=== PATIENT | female | born 1955 | race Caucasian/White ===

== ENCOUNTER 2018-06-12 11:01 | Inpatient (IN) | payer BC, SELFPAY ==
[2018-06-12] MEDS ORDERED: PROMETHAZINE 25 MG/ML VIAL IV PRN (11:39)
[2018-06-12 12:00] VITALS: BMI 30.2
--- OUTSIDE RECORDS SUMMARY | 2018-06-12 12:23 | XMS REPORT | Clinical Summary ---
:1955 Author Organization [facility] Address [address] [place] [id number] Care Team Providers Name Role Phone John Alcala MD Primary Care Provider Allergies No Known Allergies Medications Medication Sig Dispensed Refills Start Date End Date Status BOOSTRIX TDAP 2.5-8-5 0 10/27/2015 Active Lf-mcg-Lf/0.5mL vaccine valsartan-hydrochloroth 1 tablet daily. 5 01/19/2016 Active iazide (DIOVAN-HCT) 320-12.5 mg per tablet ANUCORT-HC 25 mg 25 mg as needed. 0 12/08/2015 Active suppository fenofibrate (TRICOR) 145 mg daily. 9 01/27/2016 Active 145 MG tablet rosuvastatin (CRESTOR) 5 mg nightly. 11 12/23/2016 Active 5 MG tablet MULTIVITAMIN ORAL Take 1 tablet by 0 Active mouth daily. Active Problems Problem Noted Date Essential hypertension 01/27/2016 PFO (patent foramen ovale) 01/27/2016 Family History Medical History Relation Name Comments Cancer Mother Relation Name Status Comments Mother Social History Tobacco Use Types Packs/Day Years Used Date Never Smoker Smokeless Tobacco: Never Used Alcohol Use Drinks/Week oz/Week Comments Yes Sex Assigned at Date Recorded Not on file Job Start Date Occupation Industry Not on file Not on file Not on file Travel History Travel Start Travel End No recent travel history available. Last Filed Vital Signs Not on file Plan of Treatment Health Maintenance Due Date Last Done Comments CERVICAL CANCER SCREENING 01/20/1977 BREAST CANCER SCREENING 01/20/2006 COLON CANCER SCREENING 01/20/2006 SHINGLES VACCINES (#1) 01/20/2006 INFLUENZA VACCINE 09/18/2018 Results Not on fileafter 06/11/2017 Insurance Payer Benefit Plan / Group Subscriber ID Type Phone Address BCBS BCBS CHOICE PPO/FEDERAL EMPL PPO xxxxxxxxxxxx PPO Advance Directives Patient has advance care planning documents on file. For more information, please contact:Jason Rodriges[address] [place] [address]
--- OUTSIDE RECORDS SUMMARY | 2018-06-12 12:23 | XMS REPORT ---
:1955 [facility] Address [address] [place] [address] [address] Care Team Providers Name Role Phone Kip Crocker Unavailable Unavailable Payers Payer Name Policy Type Policy Number Effective Date Expiration Date Problems This patient has no known problems. Allergies, Adverse Reactions, Alerts This patient has no known allergies or adverse reactions. Medications This patient has no known medications. Encounters Start End Encounter Admission Attending Care Care Encounter Date/Time Date/Time Type Type Clinicians Facility Department ID 2016-08-03 2016-08-03 Outpatient AUDRA Crocker [id number] 10:57:00 10:57:00 Kip
[2018-06-12] MEDS: CEFTRIAXONE/SWI 1gm 1 GM/10 ML SYR IV SCH ×2 (12:30→20:49)
[2018-06-12 12:35] LABS: Urine Appearance CLEAR; Urine Bilirubin NEGATIVE (NEG); Urine Blood 2+ (NEG); Urine Color YELLOW; Urine Glucose NEGATIVE (NEG); Urine Protein 1+ (NEG); Urine Urobilinogen 0.2 mg/dL (0.2-1.0)
[2018-06-12 12:35] LABS: Absolute Lymphocytes (CBC) 2.7 K/uL (0.7-4.9); Absolute Neutrophil 8.5 K/uL (1.8-8.0); Basophils % 0.4 % (0-1.3); Eosinophils % 1.5 % (0-4.4); Hematocrit 42.8 % (36.0-45.0); Lymphocytes % 21.6 % (15.3-44.8); MPV 8.8 fL (7.6-11.3); Monocytes % 8.3 % (3.3-12.3); RBC Red Blood Cell Count 5.02 M/uL (3.86-4.86)
[2018-06-12 12:40] LABS: Albumin 4.4 g/dL (3.4-5.0); Bilirubin Total 0.8 mg/dL (0.2-1.0); Potassium 3.9 mmol/L (3.5-5.1); Protein, Total 8.5 g/dL (6.4-8.2); Protime INR 1.01
[2018-06-12 12:55] LABS: Urine Bacteria 20-50 /HPF (<20); Urine Culture Reflex Order NOT NEEDED; Urine RBC 20-50 /HPF (NONE SEEN)
[2018-06-12] MEDS ORDERED: CEFTRIAXONE 1 GM/NS 50 ML 1 GM/50 ML BAG IV SCH (13:00)
--- NOTE | 2018-06-12 13:23 | RAD REPORT ---
EXAM DESCRIPTION: RAD - Chest Pa And Lat (2 Views) - 06/12/2018 1:11 pm CLINICAL HISTORY: HTN, preop Chest pain. COMPARISON: Chest Pa And Lat (2 Views) dated 09/11/2016; CHEST SINGLE VIEW dated 07/08/2014; CHEST PA AND LAT 2 VIEW dated 04/08/2012 FINDINGS: The lungs are clear. The heart is mildly enlarged in size. No displaced fractures.
[2018-06-12] MEDS: NA CHLORIDE 0.9% 1,000 ML IV SCH ×2 (13:24→23:38)
[2018-06-12] MEDS: MORPHINE 2 MG/ML SYR IV PRN ×2 (13:40→20:48)
--- NOTE | 2018-06-12 13:45 | RAD REPORT ---
EXAM DESCRIPTION: CT - Abdomen Pelvis Wo Contrast - 06/12/2018 12:44 pm CLINICAL HISTORY: Abdominal pain right flank pain COMPARISON: None TECHNIQUE: Computed axial tomography of the abdomen and pelvis was obtained. IV and oral contrast we re not requested. All CT scans are performed using dose optimization technique as appropriate and may include automated exposure control or mA/KV adjustment according to patient size. FINDINGS: The evaluation of solid organs, vessels and bowel is limited secondary to the lack of con trast administration. A renal calculus is not seen. Mild right periureteral stranding is seen. A ureteral calculus is not v isualized The liver, spleen, pancreas, and adrenals appear grossly normal. There is no evidence of diverticulitis. Duodenal diverticulum IMPRESSION: Right periureteral stranding likely indicates a genitourinary infection. .
[2018-06-12] MEDS ORDERED: KCL 20 MEQ/100 mL IVPB 20 MEQ/100 ML BAG IV SCH (17:00)
[2018-06-13 06:23] LABS: Absolute Lymphocytes (CBC) 2.7 K/uL (0.7-4.9); Absolute Monocytes 0.9 K/uL (0.1-1.3); Absolute Neutrophil 3.8 K/uL (1.8-8.0); Basophils % 0.6 % (0-1.3); Eosinophils % 3.3 % (0-4.4); Hematocrit 37.9 % (36.0-45.0); Lymphocytes % 35.4 % (15.3-44.8); MPV 9.5 fL (7.6-11.3); Monocytes % 11.7 % (3.3-12.3); RBC Red Blood Cell Count 4.39 M/uL (3.86-4.86)
[2018-06-13 06:37] LABS: Potassium 4.3 mmol/L (3.5-5.1)
--- NOTE | 2018-06-13 06:44 | EKG ---
Test Date: 2018-06-12 Test Time: 13:08:32 Probation Supervisor: HUSEYIN MEASUREMENT RESULTS: Intervals: Rate: 75 NE: 178 QRSD: 96 QT: 354 QTc: 395 [place]lock: P: 56 NE: 178 QRS: -23 T: 52 INTERPRETIVE STATEMENTS: Normal sinus rhythm Anterior infarct, age undetermined Abnormal ECG Compared to ECG 07/09/2014 05:22:32 Sinus bradycardia no longer present Incomplete right bundle-branch block no longer present Myocardial infarct finding still present Electronically Signed On 06-13-18 06:42:30 CDT by Rashard Mcnair
[2018-06-13] MEDS: NA CHLORIDE 0.9% 1,000 ML IV SCH ×2 (08:00→09:03)
[2018-06-13] MEDS: CEFTRIAXONE/SWI 1gm 1 GM/10 ML SYR IV SCH ×2 (09:02→20:04)
[2018-06-13] MEDS: ACETAMINOPHEN 500 MG TAB PO PRN ×2 (09:02→20:04)
[2018-06-13] MEDS: ENOXAPARIN 40 MG/0.4 ML SQ SCH (09:03)
--- NOTE | 2018-06-13 09:25 | HP ---
Date of Admission: 06/12/2018 Chief Complaint: Abdominal pain. History Of Present Illness: This is a 63-year-old pleasant female patient who was doing fine in her normal usual state of health until around 4 o'clock this morning, she woke up with complaints of righ t-sided abdominal pain in the anterior and posterior flank region. She also has frequent urination a nd some burning sensation on urination. Has some low-grade fever with this. Pain is continuous. No aggravating or relieving factor. No radiation of pain. No other associated symptoms. No nausea, v omiting. After she was evaluated at our office, a decision was made to admit her to hospital for fur ther evaluation and management of this problem as I was concerned about possibility of pyelonephritis and/or kidney stone. Allergies: NO KNOWN ALLERGIES. Medications: List reviewed. Review of Systems: Genitourinary: As mentioned above. GI: As mentioned above. Constitutional: As mentioned above. All other systems reviewed and negative. Social History: Negative for smoking and alcohol use. Family History: Significant for hypertension, breast cancer, cirrhosis of liver. Past Medical History: Significant for hypertension, mixed hyperlipidemia, diverticulosis. Past Surgical History: Significant for knee replacement, hysterectomy, bilateral salpingo-oophorecto my, appendectomy, arthroscopic knee surgery, cholecystectomy. Physical Examination: General: When she came into our office today, she appeared acutely ill. Awake, alert, oriented, not in distress. Vital Signs: Shows height 67.5 inches, weight 192 pounds, blood pressure 134/84, pulse 78, respirato ry rate 15, temperature 99.5. HEENT: Head atraumatic, normocephalic. Conjunctivae nonerythematous. Sclerae white. Mouth, no thr ush or edema noted. Ears/Nose, no mass, lesion, discharge noted. Neck: Supple. No JVD, lymph nodes, bruit, thyromegaly noted. Lungs: Bilateral good equal air entry. Clear to auscultation. No rhonchi. No rales. Heart: Normal heart sounds, no murmur or gallop. Abdomen: The patient has significant tenderness of right anterior and posterior flank region. No re bound tenderness. Bowel sounds normoactive. No guarding, rigidity. No hepatosplenomegaly. No brui t. Extremities: No leg edema. No calf tenderness. Skin: No rash, ulcer, cellulitis. Lymphatics: No lymph node enlargement in neck, supraclavicular, infraclavicular region. Neuro: No focal neurological deficit. Chest: Unremarkable. External Genitalia: Deferred. Rectal: Deferred. Laboratory Data: After she was admitted to the hospital, CAT scan of the abdomen per kidney stone pr otocol shows evidence of inflammatory changes around right proximal ureter. No evidence of any kidne y stone or hydronephrosis. Chest x-ray, no acute cardiopulmonary changes. White count 12.5, hemoglo bin 14.5, platelets 257. PT, PTT normal. Sodium 138, potassium 3.9, chloride 102, bicarb 29, BUN 14 , creatinine 0.82, glucose 96. Liver function tests unremarkable. Lactic acid 1.6. Procalcitonin l ess than 0.05. Urinalysis; 2+ esterase, rbc 20 to 50, wbc 20 to 50, bacteria 20 to 50, 2+ blood. Impression: 1.Acute pyelonephritis. 2.Hypertension. 3.Mixed hyperlipidemia. 4.Diverticulosis. Plan: Admit the patient to hospital for further evaluation and management of this problem. The miriam ent is appropriate for inpatient and is expected to spend 2 midnights in the hospital. We will go ah ead and continue home medications per order, probably starting tomorrow. IV fluid will be given. IV antibiotics will be given per order. We will follow up on urine culture, blood culture. DVT prophy laxis will be given using Lovenox per order. Plan of treatment discussed with the patient. I will s ee her tomorrow morning for followup. MUSTAPHA/MODL Voice ID: [id number]
[2018-06-13 11:47] VITALS: O2SAT 97
--- NOTE | 2018-06-14 00:01 | PN ---
Date of Progress Note: 06/13/2018 Subjective: The patient was seen this morning for followup. No new complaints, problems reported by the patient lying in bed, not in distress. Objective: Vital Signs: Reviewed. HEENT: Unremarkable. Lungs: Clear to auscultation. Heart: Sounds normal. Abdomen: Soft. Bowel sounds normoactive. No guarding, rigidity, distention. The patient does have some tenderness in right anterior and posterior flank, but overall it is better today than yesterday . No rebound tenderness. Extremities: No leg edema. Laboratory Data: White count 7.7, hemoglobin 12.7, platelets 235. Sodium 142, potassium 4.3, chlori de 109, bicarb 27, BUN 13, creatinine 0.77, glucose 91. Impression: 1.Acute pyelonephritis. 2.Hypertension. 3.Mixed hyperlipidemia. Plan: We will go ahead and continue IV fluid, but reduce rate to 50 cc/hour. Continue current empir ic antibiotic, ceftriaxone. Urine culture is growing gram-negative rods; definite identification and sensitivity result pending. Blood culture is negative so far. Ambulation was encouraged. Continue DVT prophylaxis with Lovenox. I will see her tomorrow for followup. MUSTAPHA/MODL Voice ID: [id number] Report ID: [id number]
[2018-06-14] MEDS: NA CHLORIDE 0.9% 1,000 ML IV SCH (04:11)
[2018-06-14] MEDS: CEFTRIAXONE/SWI 1gm 1 GM/10 ML SYR IV SCH (09:48)
[2018-06-14] MEDS: ENOXAPARIN 40 MG/0.4 ML SQ SCH (09:48)
[2018-06-14] MEDS: ACETAMINOPHEN 500 MG TAB PO PRN (09:54)
[2018-06-14 11:49] VITALS: BP 150/87; TEMP 97.9
--- NOTE | 2018-06-14 17:23 | DS ---
Date of Discharge: 06/14/2018 Disposition: Discharged to go home. Physical Examination: HEENT: Unremarkable. Lungs: Clear to auscultation. Heart: Sounds normal. Abdomen: Soft. Bowel sounds normal. No guarding, rigidity, tenderness, or distention. Extremities: No leg edema. Laboratory Data: Upon admission, white count 12.5, hemoglobin 14.5, platelets 257. Yesterday, white count 7.7, hemoglobin 12.7, platelets 235. Initial sodium 138, potassium 3.9, chloride 102, bicarb 29, BUN 14, creatinine 0.82, glucose 96. Urine culture growing E. coli. Blood culture remained nega tive. Procalcitonin less than 0.05. Lactic acid 1.6. Hospital Course: A 63-year-old pleasant female patient, came into office with abdominal pain, fever, and some urinary complaints. Please see dictated H and P for more information. After patient was e valuated at the office, decision was made to admit her to the hospital as I was concerned about acute pyelonephritis and kidney stone and also wanted to make sure that she did not have any sepsis proble m with this infection. The patient had significant right flank tenderness in anterior and posterior region. After admission, routine blood work was done. CAT scan of the abdomen and pelvis done with kidney stone protocol, and it did reveal presence of changes of pyelonephritis, but there was no evid ence of any kidney stone or obstruction. IV fluid was given, IV antibiotic ceftriaxone was started. The patient's right flank tenderness got better yesterday, and today when I examined her, she had no complaints of abdominal pain and had no tenderness in the anterior or posterior flank. She is doing much better, feels much better, and she was discharged to go home in stable condition with Augmentin 875 mg twice a day with food to be taken for 2 weeks, and I have advised her to [facility] evaluation and management of this urinary tract infection problem in about 3 weeks, and she will schedule her appointment for that. The patient will keep appointment to see me as per h er schedule appointment, and she should call office earlier if she needs any or earlier appointment. Final Diagnoses: 1.Acute pyelonephritis. 2.Hypertension. 3.Mixed hyperlipidemia. 4.Diverticulosis. MUSTAPHA/MODL Voice ID: [id number] Report ID: [id number]
== END 2018-06-14 13:21 | disposition home or self-care (01) | DRG 690 ==
LOC: 4TH 11:16
PROVIDERS: ADMIT Internal Medicine; ATTEND Internal Medicine
DX: N10 Acute pyelonephritis (principal); I10 Essential (primary) hypertension; E78.2 Mixed hyperlipidemia; K57.90 Diverticulosis of intestine, part unspecified, without perforation or abscess without bleeding
CPT/HCPCS: 36415; 71046; 74176; 80048; 80053; 81001; 83605; 83735; 84145; 85025; 85610; 85730; 87040; 87077; 87086; 87088; 87186; 93005; J0696; J1650; J2270; J7030

== ENCOUNTER 2018-09-20 13:01 | Emergency (ER) | payer BC ==
--- OUTSIDE RECORDS SUMMARY | 2018-09-20 13:03 | XMS REPORT | Clinical Summary ---
:1955 Author Organization [facility] Address [address] [place] [id number] Care Team Providers Name Role Phone John [...] Health Maintenance Due Date Last Done Comments BREAST CANCER SCREENING 01/20/2006 COLONOSCOPY SCREENING 01/20/2006 SHINGLES VACCINES (#1) 01/20/2006 INFLUENZA VACCINE 09/18/2018 Results Not on fileafter 09/19/2017 Advance Directives Patient has advance care planning documents on file. For more information, please contact:Jason Rodriges[address] [place] [address]
--- OUTSIDE RECORDS SUMMARY | 2018-09-20 13:03 | XMS REPORT ---
:1955 [facility] Address [address] [place] [address] [address] Care Team Providers Name Role Phone Kip [...] Date/Time Type Type Clinicians Facility Department ID 2018-08-01 2018-08-01 Outpatient AUDRA Crocker [id number] 10:03:00 10:03:00 Kip 2016-08-03 2016-08-03 Outpatient AUDRA Crocker [id number] 10:57:00 10:57:00 Kip
[2018-09-20] MEDS ORDERED: NA CHLORIDE 0.9% 500 ML ONE (14:17)
[2018-09-20 14:36] LABS: Absolute Lymphocytes (CBC) 2.2 K/uL (0.7-4.9); Basophils % 0.8 % (0-1.3); Hematocrit 43.5 % (36.0-45.0); Lymphocytes % 33.5 % (15.3-44.8); MPV 8.6 fL (7.6-11.3); RBC Red Blood Cell Count 5.06 M/uL (3.86-4.86)
[2018-09-20 14:39] LABS: Urine Blood NEGATIVE (NEG); Urine Glucose NEGATIVE (NEG); Urine Protein NEGATIVE (NEG); Urine Specific Gravity 1.015 (1.005-1.030)
[2018-09-20 15:20] LABS: Albumin 4.2 g/dL (3.4-5.0); Bilirubin Direct 0.2 mg/dL (0-0.2); Bilirubin Total 0.7 mg/dL (0.2-1.0); Magnesium 1.9 mg/dL (1.8-2.4); Potassium 3.7 mmol/L (3.5-5.1); Protein, Total 8.1 g/dL (6.4-8.2)
--- NOTE | 2018-09-20 15:58 | RAD REPORT ---
EXAM DESCRIPTION: CT - Abdomen Pelvis W Contrast - 09/20/2018 3:40 pm CLINICAL HISTORY: Abdominal pain with diarrhea COMPARISON: May 2018. TECHNIQUE: Computed axial tomography of the abdomen pelvis was obtained. 100 cc Isovue-300 was admin istered intravenously. Oral contrast was not requested which limits evaluation of bowel. All CT scans are performed using dose optimization technique as appropriate and may include automated exposure control or mA/KV adjustment according to patient size. FINDINGS: Fatty liver. Liver appears borderline enlarged. Spleen, pancreas, adrenal and kidneys appear unremarkable. There is no evidence of diverticulitis. Tiny umbilical hernia Fluid is present within nondilated bowel. Small duodenal diverticulum IMPRESSION: Fluid in nondilated bowel may indicate an enteritis
--- NOTE | 2018-09-20 16:36 | EDPHYS ---
Physician Documentation [facility] Name: Isi Castillo Age: 63 yrs Sex: Female : 1955 Arrival Date: 09/20/2018 Time: 13:03 Bed 24 Private MD: Libia Alcala C ED Physician Angel Hawk HPI: 09/20 13:25 This 63 yrs old Female presents to ER via Ambulatory with complaints of cp Diarrhea. 13:25 The patient presents to the emergency department with diarrhea, that is continuous. cp Onset: The symptoms/episode began/occurred 2 day(s) ago. Possible causes: unknown. Associated signs and symptoms: Pertinent negatives: abdominal pain, constipation, dysuria, fever, GI bleeding, vomiting. Severity of symptoms: in the emergency department the symptoms are unchanged despite home interventions. Patient denies recent travel out of country or recent use of antibiotics. Historical: - Allergies: 13:08 No Known Allergies; hj - PMHx: 13:08 Hypertension; Hyperlipidemia; hj - PSHx: 13:08 Cholecystectomy; Hysterectomy; Knee surgery; hj - Immunization history:: Adult Immunizations up to date. - Social history:: Smoking status: Patient/guardian denies using tobacco. - Ebola Screening: : Patient negative for fever greater than or equal to 101.5 degrees Fahrenheit, and additional compatible Ebola Virus Disease symptoms Patient denies exposure to infectious person Patient denies travel to an Ebola-affected area in the 21 days before illness onset No symptoms or risks identified at this time. ROS: 13:30 Constitutional: Negative for body aches, chills, fever, poor PO intake. cp 13:30 Eyes: Negative for injury, pain, redness, and discharge. cp 13:30 ENT: Negative for ear pain, sore throat, difficulty swallowing, difficulty handling secretions. 13:30 Cardiovascular: Negative for chest pain, palpitations. 13:30 Respiratory: Negative for cough, shortness of breath, wheezing. 13:30 Abdomen/GI: Positive for diarrhea, Negative for abdominal pain, vomiting, constipation, black/tarry stool, rectal bleeding. 13:30 Back: Negative for radiated pain. 13:30 : Negative for urinary symptoms. 13:30 Skin: Negative for cellulitis, rash. 13:30 Neuro: Negative for altered mental status, headache, syncope, weakness. 13:30 All other systems are negative. Exam: 13:40 Constitutional: The patient appears in no acute distress, alert, awake, non-toxic, well cp developed, well nourished. 13:40 Head/Face: Normocephalic, atraumatic. cp 13:40 Eyes: Periorbital structures: appear normal, Conjunctiva: normal, no exudate, no injection, Sclera: no appreciated abnormality, Lids and lashes: appear normal, bilaterally. 13:40 ENT: External ear(s): are unremarkable, Nose: is normal, Mouth: Lips: moist, Oral mucosa: pink and intact, moist, Posterior pharynx: is normal, airway is patent, no erythema, no exudate. 13:40 Neck: ROM/movement: is normal, is supple, without pain, no meningismus, no nuchal rigidity. 13:40 Chest/axilla: Inspection: normal, Palpation: is normal, no crepitus, no tenderness. 13:40 Cardiovascular: Rate: normal, Rhythm: regular, Edema: is not appreciated, JVD: is not appreciated. 13:40 Respiratory: the patient does not display signs of respiratory distress, Respirations: labored breathing, is not present, accessory muscle usage, is absent, intercostal retractions, are absent, splinting, is not noted, tachypnea, is not appreciated, Breath sounds: are clear throughout, no decreased breath sounds, no stridor, no wheezing. 13:40 Abdomen/GI: Inspection: abdomen appears normal, Bowel sounds: active, all quadrants, Palpation: abdomen is soft and non-tender, in all quadrants. 13:40 Back: pain, is absent. 13:40 Skin: no rash present. Vital Signs: 13:08 BP 132 / 79; Pulse 73; Resp 16; Temp 98.4(O); Pulse Ox 98.4% on R/A; Weight 86.18 kg; hj Height 5 ft. 7 in. (170.18 cm); Pain 0/10; 13:27 BP 129 / 79 Supine; Pulse 66; Resp 16 S; Pulse Ox 100% on R/A; ca1 13:29 BP 130 / 88 Sitting; Pulse 78; Resp 16 S; Pulse Ox 100% on R/A; ca1 13:29 BP 122 / 84 Standing; Pulse 86; Resp 17 S; Pulse Ox 100% on R/A; ca1 14:31 BP 116 / 79; Pulse 76; Resp 16 S; Pulse Ox 100% on R/A; ca1 15:30 BP 125 / 64; Pulse 69; Resp 17 S; Pulse Ox 100% on R/A; ca1 16:34 BP 122 / 74; Pulse 72; Resp 17 S; Temp 98(O); Pulse Ox 100% on R/A; ca1 13:08 Body Mass Index 29.76 (86.18 kg, 170.18 cm) hj MDM: 13:17 Patient medically screened. cp 14:45 Differential diagnosis: gastritis, pancreatitis, appendicitis, viral gastroenteritis, cp gastroenteritis. 16:35 Data reviewed: vital signs, nurses notes, lab test result(s), radiologic studies, CT cp scan. 16:35 Counseling: I had a detailed discussion with the patient and/or guardian regarding: the cp historical points, exam findings, and any diagnostic results supporting the discharge/admit diagnosis, lab results, radiology results, to return to the emergency department if symptoms worsen or persist or if there are any questions or concerns that arise at home. 16:35 Response to treatment: the patient's symptoms have mildly improved after treatment, and cp as a result, I will discharge patient. 09/20 14:13 Order name: Basic Metabolic Panel; Complete Time: 16:00 cp 09/20 16:01 Interpretation: Normal except: GFR 78. cp 09/20 14:13 Order name: CBC with Diff; Complete Time: 16:00 cp 09/20 16:01 Interpretation: Normal except: RBC 5.06. cp 09/20 14:13 Order name: Creatinine for Radiology; Complete Time: 16:00 cp 09/20 14:13 Order name: Hepatic Function; Complete Time: 16:00 cp 09/20 16:01 Interpretation: Normal except: AST 70; ALT 81; GLOB 3.9. cp 09/20 14:13 Order name: Lipase; Complete Time: 16:00 cp 09/20 14:13 Order name: Magnesium; Complete Time: 16:00 cp 09/20 13:17 Order name: Orthostatics; Complete Time: 13:35 cp 09/20 14:13 Order name: IV Saline Lock; Complete Time: 14:30 cp 09/20 14:13 Order name: Labs collected and sent; Complete Time: 14:30 cp 09/20 14:13 Order name: Urine Dipstick-Ancillary (obtain specimen); Complete Time: 14:30 cp 09/20 14:13 Order name: CT Abd/Pelvis - IV Contrast Only; Complete Time: 16:00 cp 09/20 14:38 Order name: Urine Dipstick--Ancillary (enter results); Complete Time: 16:00 eb 09/20 16:02 Order name: PO challenge; Complete Time: 16:17 cp Administered Medications: 14:28 Drug: NS 0.9% 500 ml Route: IV; Rate: bolus; Site: right antecubital; ca1 15:00 Follow up: Response: No adverse reaction; IV Status: Completed infusion ca1 16:36 Drug: LoMOTIL 1 tabs Route: PO; hj 16:51 Follow up: Response: No adverse reaction hj 17:01 Follow up: Response: No adverse reaction ca1 Disposition: 09/20/18 16:35 Discharged to Home. Impression: Diarrhea, unspecified. - Condition is Stable. - Discharge Instructions: Food Choices to Help Relieve Diarrhea, Adult, Diarrhea, Adult. - Prescriptions for Zofran 4 mg Oral Tablet - take 1 tablet by ORAL route every 12 hours As needed; 20 tablet. Lomotil 2.5- 0.025 mg Oral Tablet - take 1 tablet by ORAL route every 6 hours As needed; 20 tablet. - Medication Reconciliation Form, Thank You Letter, Antibiotic Education, Prescription Opioid Use form. - Follow up: Libia Alcala MD; When: 2 - 3 days; Reason: diarrhea continues. - Problem is new. - Symptoms have improved. Addendum: 09/21/2018 17:10 Co-signature as Attending Physician, Angel Hawk MD. r n Signatures: Dispatcher [employer] EDAngel Lloyd MD MD rn Joaquin, Henry, RN RN hj Page, Corey, PA PA cp Acob, Cheryl RN RN ca1 Corrections: (The following items were deleted from the chart) 09/20 17:04 16:35 09/20/2018 16:35 Discharged to Home. Impression: Diarrhea, unspecified. Condition ca1 is Stable. Forms are Medication Reconciliation Form, Thank You Letter, Antibiotic Education, Prescription Opioid Use. Follow up: Libia Alcala; When: 2 - 3 days; Reason: diarrhea continues. Problem is new. Symptoms have improved. cp
--- NOTE | 2018-09-20 16:36 | ER ---
Nurse's Notes [facility] Name: Isi Castillo Age: 63 yrs Sex: Female : 1955 Arrival Date: 09/20/2018 Time: 13:03 Bed 24 Private MD: Libia Alcala C Diagnosis: Diarrhea, unspecified Presentation: 09/20 13:06 Presenting complaint: Patient states: i have diarrhea since noon and it seemed hj to subside but its still there, denies abd pain; denies N/V; denies fever and chills;. Transition of care: patient was not received from another setting of care. Onset of symptoms was September 20, 2018. Risk Assessment: Do you want to hurt yourself or someone else? Patient reports no desire to harm self or others. Initial Sepsis Screen: Does the patient meet any 2 criteria? No. Patient's initial sepsis screen is negative. Does the patient have a suspected source of infection? No. Patient's initial sepsis screen is negative. Care prior to arrival: None. 13:06 Method Of Arrival: Ambulatory 13:06 Acuity: REMY 3 hj Historical: - Allergies: 13:08 No Known Allergies; hj - PMHx: 13:08 Hypertension; Hyperlipidemia; hj - PSHx: 13:08 Cholecystectomy; Hysterectomy; Knee surgery; hj - Immunization history:: Adult Immunizations up to date. - Social history:: Smoking status: Patient/guardian denies using tobacco. - Ebola Screening: : Patient negative for fever greater than or equal to 101.5 degrees Fahrenheit, and additional compatible Ebola Virus Disease symptoms Patient denies exposure to infectious person Patient denies travel to an Ebola-affected area in the 21 days before illness onset No symptoms or risks identified at this time. Screenin:22 Abuse screen: Denies threats or abuse. Denies injuries from another. Nutritional ca1 screening: No deficits noted. Tuberculosis screening: No symptoms or risk factors identified. Fall Risk None identified. Assessment: 13:22 General: Appears in no apparent distress. comfortable, Behavior is calm, cooperative, ca1 appropriate for age. Pain: Denies pain. Neuro: Level of Consciousness is awake, alert, obeys commands, Oriented to person, place, time, situation. Cardiovascular: Heart tones S1 S2 present Capillary refill < 3 seconds Patient's skin is warm and dry. Respiratory: Airway is patent Respiratory effort is even, unlabored, Respiratory pattern is regular, symmetrical, Breath sounds are clear bilaterally. GI: Abdomen is round non-distended, Bowel sounds present X 4 quads. Abd is soft and non tender X 4 quads. Reports diarrhea, since 4 days ago Patient currently denies nausea, vomiting. : No deficits noted. No signs and/or symptoms were reported regarding the genitourinary system. EENT: No deficits noted. No signs and/or symptoms were reported regarding the EENT system. Derm: Skin is intact, is healthy with good turgor, Skin is pink, warm \T\ dry. Musculoskeletal: Circulation, motion, and sensation intact. Capillary refill < 3 seconds, Range of motion: intact in all extremities. 13:32 Reassessment: Orthostatics done. Negative. No reports of dizziness, N/V. Notified ca1 provider. 14:31 Reassessment: Patient appears in no apparent distress at this time. Patient and/or ca1 family updated on plan of care and expected duration. Pain level reassessed. Patient is alert, oriented x 3, equal unlabored respirations, skin warm/dry/pink. 15:30 Reassessment: Patient appears in no apparent distress at this time. Patient and/or ca1 family updated on plan of care and expected duration. Pain level reassessed. Patient is alert, oriented x 3, equal unlabored respirations, skin warm/dry/pink. 16:30 Reassessment: Patient appears in no apparent distress at this time. Patient and/or ca1 family updated on plan of care and expected duration. Pain level reassessed. Patient is alert, oriented x 3, equal unlabored respirations, skin warm/dry/pink. Vital Signs: 13:08 BP 132 / 79; Pulse 73; Resp 16; Temp 98.4(O); Pulse Ox 98.4% on R/A; Weight 86.18 kg; hj Height 5 ft. 7 in. (170.18 cm); Pain 0/10; 13:27 BP 129 / 79 Supine; Pulse 66; Resp 16 S; Pulse Ox 100% on R/A; ca1 13:29 BP 130 / 88 Sitting; Pulse 78; Resp 16 S; Pulse Ox 100% on R/A; ca1 13:29 BP 122 / 84 Standing; Pulse 86; Resp 17 S; Pulse Ox 100% on R/A; ca1 14:31 BP 116 / 79; Pulse 76; Resp 16 S; Pulse Ox 100% on R/A; ca1 15:30 BP 125 / 64; Pulse 69; Resp 17 S; Pulse Ox 100% on R/A; ca1 16:34 BP 122 / 74; Pulse 72; Resp 17 S; Temp 98(O); Pulse Ox 100% on R/A; ca1 13:08 Body Mass Index 29.76 (86.18 kg, 170.18 cm) ED Course: 13:03 Patient arrived in ED. as 13:04 Libia Alcala MD is Private Physician. as 13:07 Triage completed. hj 13:08 Arm band placed on left wrist. hj 13:12 Erika Schumacher, HELGA is Primary Nurse. ca1 13:12 Chadwick Lomeli PA is PHCP. cp 13:12 Angel Hawk MD is Attending Physician. cp 13:22 Patient has correct armband on for positive identification. Bed in low position. Call ca1 light in reach. Side rails up X 1. Pulse ox on. NIBP on. Warm blanket given. 14:21 Radiology exam delayed due to lab results not completed at this time. (BUN/Creatinine). bq 14:25 Inserted saline lock: 20 gauge in right antecubital area, using aseptic technique. ca1 Blood collected. 15:40 CT completed. Patient tolerated procedure well. Patient moved back from CT. bq 15:40 CT Abd/Pelvis - IV Contrast Only In Process Unspecified. EDMS 16:35 Libia Alcala MD is Referral Physician. cp 16:55 No provider procedures requiring assistance completed. IV discontinued, intact, ca1 bleeding controlled, No redness/swelling at site. Pressure dressing applied. Administered Medications: 14:28 Drug: NS 0.9% 500 ml Route: IV; Rate: bolus; Site: right antecubital; ca1 15:00 Follow up: Response: No adverse reaction; IV Status: Completed infusion ca1 16:36 Drug: LoMOTIL 1 tabs Route: PO; hj 16:51 Follow up: Response: No adverse reaction hj 17:01 Follow up: Response: No adverse reaction ca1 Outcome: 16:35 Discharge ordered by MD. cp 16:55 Discharged to home ambulatory. ca1 16:55 Condition: stable 16:55 Discharge instructions given to patient, Instructed on discharge instructions, follow up and referral plans. medication usage, Demonstrated understanding of instructions, follow-up care, medications. 17:04 Patient left the ED. ca1 Signatures: Dispatcher [employer] EDMS Denisse Ovalles Amelia as Joaquin, Henry, RN RN Chadwick Lomeli PA PA cp Acob, Cheryl, RN RN ca1 Corrections: (The following items were deleted from the chart) 13:11 13:08 Resp 16bpm; Pulse Ox 98.4% RA; Temp 98.4F Oral; 86.18 kg; Height 5 ft. 7 in.; BMI: 29.7; Pain 0/10; hj
[2018-09-20] MEDS ORDERED: DIPHENOX/ATROP SULF 1 TAB PO ONE (16:50)
[2018-09-20 17:10] VITALS: O2SAT 100
[2018-09-20 17:15] VITALS: BP 122/74; TEMP 98
== END 2018-09-20 17:04 | disposition home or self-care (01) ==
LOC: ER 13:01
DX: R19.7 Diarrhea, unspecified (principal); I10 Essential (primary) hypertension
CPT/HCPCS: 85025; 80048; 36415; 83735; 80076; 81003; 83690; 74177; 96360; 99284; Q9967